=== PATIENT | female | born 1945 | race Caucasian/White ===

== ENCOUNTER 2018-12-13 07:59 | Emergency (ER) | payer MEDICARE | END 2018-12-13 08:43 | disposition home or self-care (01) | LOC: NAV ERS 07:59 | DX: H92.22 Otorrhagia, left ear (principal); E78.5 Hyperlipidemia, unspecified; I10 Essential (primary) hypertension; Z79.899 Other long term (current) drug therapy | CPT/HCPCS: 99282 ==

== ENCOUNTER 2019-09-20 12:31 | Emergency (ER) | payer MEDICARE ==
--- NOTE | 2019-09-20 13:40 | RAD ---
LEFT WRIST: 09/20/19 Three views. HISTORY: Injury. Mild degenerative change at the first carpometacarpal. Carpals appear normally aligned. There is evidence of a subtle nondisplaced fracture involving the distal radius. Follow-up recommende d. IMPRESSION: Evidence of a nondisplaced fracture distal radius. No acute findings. POS: [facility]
== END 2019-09-20 13:34 | disposition home or self-care (01) ==
LOC: NAV ERS 12:31
DX: S52.502A Unspecified fracture of the lower end of left radius, initial encounter for closed fracture (principal); E78.5 Hyperlipidemia, unspecified; I10 Essential (primary) hypertension; Z87.891 Personal history of nicotine dependence; Z79.84 Long term (current) use of oral hypoglycemic drugs; Z79.899 Other long term (current) drug therapy; W01.0XXA Fall on same level from slipping, tripping and stumbling without subsequent striking against object, initial encounter